=== PATIENT | male | born 1995 | race Caucasian/White ===

== ENCOUNTER 2020-07-26 13:46 | Observation (INO) | payer OTHER ==
[2020-07-26] MEDS ORDERED: ACETAMINOPHEN TAB 325 MG TAB PO PRN (14:05)
[2020-07-26] MEDS ORDERED: MORPHINE SULFATE 4 MG/ML SYRINGE IV PRN (14:05)
[2020-07-26] MEDS ORDERED: ONDANSETRON 4 MG/2 ML VIAL IVP PRN (14:05)
[2020-07-26] MEDS ORDERED: NALOXONE 0.4 MG/ML 1 ML VIAL IV PRN (14:05)
--- NOTE | 2020-07-26 14:13 | ED ---
General Adult HPI - General Chief complaint: Skin/Abscess/Foreign Body Stated complaint: ENT,Facial swelling Time Seen by Provider: 07/26/20 13:58 Source: patient, family, RN notes reviewed Mode of arrival: ambulatory Limitations: no limitations - History of Present Illness Initial comments: Patient is a pleasant 25-year-old male presenting to the emergency Department with right-sided facial swelling. Onset of symptoms was 2 days ago. Patient saw his dentist yesterday and started on amoxicillin. Patient did go to [facility] today. Patient was transferred here. Patient did have blood cultures done as well as blood work and received a dose of IV antibiotics, Unasyn. Patient states discomfort is moderate. Patient is able to tolerate oral intake. No dyspnea. No history of similar symptoms previously. - Related Data Allergies Allergy/AdvReac Type Severity Reaction Status Date / Time No Known Allergies Allergy Verified 07/26/20 13:54 Review of Systems ROS Statement: Those systems with pertinent positive or pertinent negative responses have been documented in the HPI. ROS Other: All systems not noted in ROS Statement are negative. Constitutional: Denies: fever Eyes: Denies: eye pain ENT: Reports: as per HPI, dental pain. Denies: ear pain Respiratory: Denies: cough, dyspnea Cardiovascular: Denies: chest pain Endocrine: Denies: fatigue Gastrointestinal: Denies: abdominal pain, nausea Genitourinary: Denies: dysuria Musculoskeletal: Denies: back pain Skin: Denies: rash Neurological: Denies: weakness Past Medical History Past Medical History: No Reported History History of Any Multi-Drug Resistant Organisms: None Reported Past Surgical History: No Surgical Hx Reported Past Psychological History: No Psychological Hx Reported Smoking Status: Never smoker Past Alcohol Use History: None Reported Past Drug Use History: Marijuana General Exam Limitations: no limitations General appearance: alert, in no apparent distress Head exam: Present: normocephalic Eye exam: Present: normal appearance, PERRL ENT exam: Present: other (Right lower mandible swelling, moderate with tenderness. Right lower first molar with decay and mild lateral swelling.) Neck exam: Present: normal inspection Respiratory exam: Present: normal lung sounds bilaterally Cardiovascular Exam: Present: regular rate, normal rhythm GI/Abdominal exam: Present: soft. Absent: tenderness Extremities exam: Present: normal inspection Neurological exam: Present: alert Psychiatric exam: Present: normal affect, normal mood Skin exam: Present: normal color Course Vital Signs 10/07/20 13:50 Temperature 97.9 F Pulse Rate 98 Respiratory 16 Rate Blood Pressure 114/77 O2 Sat by Pulse 98 Oximetry - Reevaluation(s) Reevaluation #1: 07/26/20 14:12 Patient did meet sepsis criteria prior to arrival. Heart rate greater than 90 and white blood cell count of 16. Patient did have blood culture and IV antibiotics done prior to arrival. Lactic acid has been added. Medical Decision Making - Medical Decision Making Case was discussed with Dr. Clement, who will admit covering for [facility]. No consults at this time per Dr. Clement. Patient is aware of plan. Disposition Clinical Impression: Cellulitis, Dental abscess, Sepsis Disposition: ADMITTED IP TO THIS HOSP Is patient prescribed a controlled substance at d/c from ED?: No Referrals: None,Stated [Primary Care Provider] - 1-2 days Decision Time: 14:12
[2020-07-26] MEDS ORDERED: AMPICILLIN-SULBACTAM 3 GM in SODIUM CHLORIDE 0.9% 100 ML IVPB SCH (16:00)
--- NOTE | 2020-07-26 16:24 | P.HPIM ---
History of Present Illness H&P Date: 07/26/20 Chief Complaint: Facial swelling This is a 25-year-old male with no significant past medical history who was transferred to our hospital from [place] for ENT evaluation. Patient informed me that for the past couple of days he started having discomfort and pain in his right molar tooth and he saw his dentist who prescribed Augmentin for him. Patient said he took the medication but the swelling and pain got worse so he went to the emergency room in [facility] where a CT facial showed infection centered at the base of the right first mandibular molar with associated cortical breakthrough into the surrounding soft tissue. There was extensive phlegmon and inflammation within the right pre-mandibular soft tissue and intramuscular edema. No organized abscess is identified at this time. Reactive Cervical, submandibular, and supplemental adenopathy noted. Patient was noted to be septic with elevated WBC count and tachycardia. He was given IV Unasyn and was transferred to our hospital for ENT evaluation. He was seen by me on the observation unit. He appeared comfortable. He said that the swelling is improving after receiving IV antibiotic. He denies any fevers or chills. He denies tobacco abuse but admits to smoking marijuana daily. He does not take any prescription medications otherwise. No known underlying medical history. Review of Systems Review of system: 14 points review of systems were obtained and were negative except to what were mentioned in the HPI. Past Medical History Past Medical History: No Reported History History of Any Multi-Drug Resistant Organisms: None Reported Past Surgical History: No Surgical Hx Reported Past Anesthesia/Blood Transfusion Reactions: Unable to Obtain Additional Past Anesthesia/Blood Transfusion Reaction / Comment(s): Pt has never had anesthesia. Smoking Status: Never smoker - Past Family History Father Family Medical History: No Reported History Mother Family Medical History: Hypertension Additional Family Medical History / Comment(s): Mother had htn in the past-no longer on rx. Medications and Allergies Home Medications Medication Instructions Recorded Confirmed Type Amoxicillin 500 mg PO TID 07/26/20 07/26/20 History Ibuprofen [Motrin] 800 mg PO Q6H PRN 07/26/20 07/26/20 History Allergies Allergy/AdvReac Type Severity Reaction Status Date / Time No Known Allergies Allergy Verified 07/26/20 14:38 Physical Exam Vitals: Vital Signs Temp Pulse Pulse Resp BP BP Pulse Ox 07/26/20 15:21 98.1 F 86 16 112/75 98 07/26/20 13:50 97.9 F 98 16 114/77 98 Intake and Output 07/26/20 07/26/20 07/26/20 06:59 14:59 22:59 Other: Weight 74.843 kg 74.843 kg General: The patient is awake and alert, in no distress HEENT: There are significant facial swelling involving the right mandibular and submandibular area with some palpable lymph nodes Eye: there is normal conjunctiva bilaterally. Neck: The neck is supple, there is no JVD. Cardiovascular: Normal S1-S2, no S3-S4, no murmurs. Respiratory: Lungs clear to auscultation bilaterally Gastrointestinal: Abdomen is soft, nontender Musculoskeletal: There is no pedal edema. Neurological:. Speech is normal. Skin: Skin is warm and dry Thrombosis Risk Factor Assmnt - Choose All That Apply Any of the Below Risk Factors Present?: No Other Risk Factors: No Other congenital or acquired thrombophilia - If yes, enter type in comment: No Thrombosis Risk Factor Assessment Level: Very Low Risk Assessment and Plan Assessment: 1. First right mandibular molar infection with surrounding inflammation and phlegmon/soft tissue swelling and intramuscular edema, no well organized abscess noted on CT. Continue IV antibiotic with Unasyn. Intermittent icing. I informed the patient that we do not have maxillofacial surgery in this hospital. I would consult ENT for second opinion. 2. Sepsis without septic shock: Lactic acid normal. Patient received IV fluid resuscitation in the ER. Continue normal saline at 130 mL per hour. 3. Marijuana abuse 4. DVT prophylaxis with subcu heparin The patient is placed in observation with an anticipated less than 2 midnight stay for evaluation of the medical problems noted above. CODE STATUS: Full code Anticipated discharge date: To be determined based on clinical course Anticipated discharge place: Home A total of 45 minutes was spent on the care of this complex patient more than 50% of the time was spent in counseling and care coordination.
[2020-07-26] MEDS: SODIUM CHLORIDE 0.9% 1,000 ML IV SCH ×2 (16:49→23:01)
[2020-07-26] MEDS: AMPICILLIN-SULBACTAM 3 GM in SODIUM CHLORIDE 0.9% 100 ML IVPB SCH ×2 (17:53→23:07)
[2020-07-26] MEDS: traMADol 50 MG TAB PO PRN (17:59)
[2020-07-26] MEDS: HEPARIN SODIUM,PORCINE 5,000 UNIT/ML 1 ML VIAL SQ SCH (22:02)
[2020-07-27] MEDS: SODIUM CHLORIDE 0.9% 1,000 ML IV SCH ×2 (06:00→12:14)
[2020-07-27] MEDS: AMPICILLIN-SULBACTAM 3 GM in SODIUM CHLORIDE 0.9% 100 ML IVPB SCH ×3 (06:00→17:01)
[2020-07-27 07:29] LABS: Basophils % (A) 0 %; Eosinophils # (A) 0.1 k/uL (0-0.7); Eosinophils % (A) 1 %; HGB 13.9 gm/dL (13.0-17.5); Lymphocytes # (A) 1.1 k/uL (1.0-4.8); Lymphocytes % (A) 9 %; MCH 29.8 pg (25.0-35.0); MCHC 33.9 g/dL (31.0-37.0); MCV 88.1 fL (80.0-100.0); Mean Platelet Volume 8.2; Monocytes # (A) 0.8 k/uL (0-1.0); Monocytes % (A) 6 %; Neutrophils # (A) 10.6 k/uL (1.3-7.7); Neutrophils % (A) 84 %; Platelet Count 187 k/uL (150-450); RBC 4.66 m/uL (4.30-5.90); RDW 12.4 % (11.5-15.5); WBC 12.7 k/uL (3.8-10.6)
[2020-07-27] MEDS: HEPARIN SODIUM,PORCINE 5,000 UNIT/ML 1 ML VIAL SQ SCH (08:07)
[2020-07-27 08:32] VITALS: RESP 14
--- NOTE | 2020-07-27 13:37 | P.PN ---
Subjective Progress Note Date: 07/27/20 ` Patient is doing about the same today. Swelling did not improve compared to yesterday. Objective - Vital Signs Vital signs: Vital Signs Temp 98.5 F 07/27/20 08:31 Pulse 100 07/27/20 08:31 Resp 14 07/27/20 08:31 BP 117/69 07/27/20 08:31 Pulse Ox 98 07/27/20 08:31 Intake & Output 07/26/20 07/27/20 07/27/20 18:59 06:59 18:59 Intake Total 720 Balance 720 Weight 74.843 kg Intake: Oral 720 Other: Voiding Method Toilet Toilet Toilet # Voids 1 2 - Exam General: The patient is awake and alert, in no distress Eye: there is normal conjunctiva bilaterally. Neck: There is no palpable cervical lymphadenopathy Cardiovascular: Normal S1-S2, no S3-S4, no murmurs. Respiratory: Lungs clear to auscultation bilaterally Gastrointestinal: Abdomen is soft, nontender Musculoskeletal: There is no pedal edema. Neurological:. Speech is normal. Skin: Skin is warm and dry - Labs CBC & Chem 7: 07/27/20 06:42 Labs: Abnormal Lab Results - Last 24 Hours (Table) 07/27/20 Range/Units 06:42 WBC 12.7 H (3.8-10.6) k/uL Neutrophils # 10.6 H (1.3-7.7) k/uL Assessment and Plan Assessment: This is a 25-year-old male who presented to an emergency room in [place] for worsening right facial swelling and tooth infection. Patient was transferred to [place] for further management of his medical problems noted below. 1. First right mandibular molar infection with surrounding inflammation and phlegmon/soft tissue swelling and intramuscular edema, no well organized abscess noted on CT. Continue IV antibiotic with Unasyn. Intermittent icing. Awaiting maxillofacial surgery evaluation. 2. Sepsis without septic shock: Lactic acid normal. Patient received aggressive IV fluid hydration since admission. 3. Marijuana abuse 4. DVT prophylaxis with subcu heparin
[2020-07-27] MEDS: traMADol 50 MG TAB PO PRN (13:59)
[2020-07-27 14:24] VITALS: BP 136/72; PULSE 90; TEMP 98.9
--- NOTE | 2020-07-27 14:48 | P.DS ---
Providers Date of admission: 07/26/20 14:05 Expected date of discharge: 07/27/20 Attending physician: Bree Rodriguez DO Consults: 07/27/20 08:51 Consult Physician Routine Consulting Provider: Reyes Jauregui Consult Reason/Comments: tooth infection Do you want consulting provider notified?: Yes Primary care physician: Stated None Hospital Course: This is a 25-year-old male who presented to an emergency room in [place] for worsening right facial swelling and tooth infection. Patient was transferred to [place] for further management of his medical problems noted below. 1. First right mandibular molar infection with surrounding inflammation and phlegmon/soft tissue swelling and intramuscular edema, no well organized abscess noted on CT. started on IV antibiotic with Unasyn. Intermittent icing. Seen and evaluated by maxillofacial surgery. Plan for tooth extraction tomorrow. Continue antibiotic with Augmentin. Follow up as directed. 2. Sepsis without septic shock: Lactic acid normal. Patient received aggressive IV fluid hydration since admission. 3. Marijuana abuse Patient Condition at Discharge: Stable Plan - Discharge Summary Discharge Rx Participant: No New Discharge Prescriptions: New Amoxic-Pot Clav 875-125Mg [Augmentin 875-125] 1 tab PO Q12HR 5 Days #10 tab Continue Ibuprofen [Motrin] 800 mg PO Q6H PRN PRN Reason: Pain Discontinued Amoxicillin 500 mg PO TID Discharge Medication List Ibuprofen [Motrin] 800 mg PO Q6H PRN 07/26/20 [History] Amoxic-Pot Clav 875-125Mg [Augmentin 875-125] 1 tab PO Q12HR 5 Days #10 tab 07/27/20 [Rx] Follow up Appointment(s)/Referral(s): Reyes Jauregui DDS [STAFF PHYSICIAN] - 07/28/20 9:00 am (Address: [address] [place] [address] phone number [phone]) None,Stated [Primary Care Provider] - 1-2 days Patient Instructions/Handouts: Dental Abscess (ED) Discharge Disposition: HOME SELF-CARE
--- NOTE | 2020-07-27 14:57 | CONS ---
CONSULTATION REASON FOR CONSULTATION: Dental pain. HISTORY OF PRESENT ILLNESS: This 25-year-old male presented on admission via transfer from [facility]. The patient had gone to his dentist in the past few weeks complaining of tooth pain and received an antibiotic. This resulted in no relief. The patient then went to his primary care physician and received Motrin and antibiotic, did not relieve the problem, and approximately 3 days ago, he noticed increased swelling of the right side of his jaw. The patient then went to [facility] and was admitted there, received IV antibiotics and was transferred to the [facility] for an ear, nose, and throat consultation for the swelling of the right side of his jaw. PAST MEDICAL HISTORY: Noncontributory, except for marijuana use. HOME MEDICATIONS: None. ALLERGIES: None. CT scan report was reviewed included an impression of infection site under the base of the right first molar with cortical break through into surrounding soft tissues. LIMITED PHYSICAL EXAM: The patient is afebrile. Vital signs are stable. He is sitting up in bed, awake, and pleasant and alert and oriented x3. The patient was oriented and appeared to have no trouble with cognitive skills. The patient appeared in no acute distress and he had slight swelling of the right mandible at this point, approximately 1 cm or less. The intraoral exam was easily obtained with an opening within normal limits. No airway compromise or embarrassment. No floor of mouth swelling. The vestibular area adjacent to #30 was approximately 1 cm swollen with some redness associated and appeared to be some spontaneous drainage of the buccal tissues. Tooth #30 was grossly decayed and nonrestorable. ASSESSMENT: Dental decay of tooth #30 with associated abscess. PLAN: I spoke with the patient about a scheduled outpatient procedure tomorrow in my clinic, which was he was amenable to. Consent was discussed with the patient and instructions for n.p.o. after midnight tonight and discussed with the patient. Directions were given, an appointment time of 9 in the morning given to the patient. MMODL / IJN: [id number] /
== END 2020-07-27 17:40 | disposition home or self-care (01) ==
LOC: EC 13:46 → 1SOBS 14:05
PROVIDERS: ADMIT Internal Medicine; ATTEND Internal Medicine
DX: K04.7 Periapical abscess without sinus (principal); K12.1 Other forms of stomatitis; A41.9 Sepsis, unspecified organism; K02.9 Dental caries, unspecified; Z82.49 Family history of ischemic heart disease and other diseases of the circulatory system
CPT/HCPCS: 96361; 96365; 96366 ×2; 96372; 99284; 36415; 83605; 85025; G0378 ×2; J1644; J0295 ×2